=== PATIENT | female | born 1985 | race Caucasian/White ===

== ENCOUNTER → 2024-02-22 08:13 | Outpatient (REF) | payer BC, SELFPAY | LOC: PNTC 08:13 | PROVIDERS: ATTENDING PHYSICIAN Obstetrics & Gynecology | DX: O36.80X0 Pregnancy with inconclusive fetal viability, not applicable or unspecified (principal) | CPT/HCPCS: 76801; 76817 ==

== ENCOUNTER → 2024-09-13 10:43 | Outpatient (REF) | payer BC, SELFPAY | LOC: PNTC 10:43 | PROVIDERS: ATTENDING PHYSICIAN Obstetrics & Gynecology | DX: Z36.0 Encounter for antenatal screening for chromosomal anomalies (principal); Z36.82 Encounter for antenatal screening for nuchal translucency; O36.80X0 Pregnancy with inconclusive fetal viability, not applicable or unspecified | CPT/HCPCS: 76801; 76813 ==

== ENCOUNTER → 2024-10-20 09:46 | Outpatient (REF) | payer BC, SELFPAY | LOC: PNTC 09:46 | PROVIDERS: ATTENDING PHYSICIAN Obstetrics & Gynecology | DX: O09.529 Supervision of elderly multigravida, unspecified trimester (principal); O99.210 Obesity complicating pregnancy, unspecified trimester; O34.219 Maternal care for unspecified type scar from previous cesarean delivery | CPT/HCPCS: 76805 ==

== ENCOUNTER → 2024-11-14 08:46 | Outpatient (REF) | payer BC, SELFPAY | LOC: PNTC 08:46 | PROVIDERS: ATTENDING PHYSICIAN Obstetrics & Gynecology | DX: O09.529 Supervision of elderly multigravida, unspecified trimester (principal); O34.219 Maternal care for unspecified type scar from previous cesarean delivery; O99.210 Obesity complicating pregnancy, unspecified trimester | CPT/HCPCS: 76811 ==

== ENCOUNTER → 2024-12-26 08:50 | Outpatient (REF) | payer BC, SELFPAY | LOC: PNTC 08:50 | PROVIDERS: ATTENDING PHYSICIAN Obstetrics & Gynecology | DX: O09.529 Supervision of elderly multigravida, unspecified trimester (principal); O99.210 Obesity complicating pregnancy, unspecified trimester; O34.219 Maternal care for unspecified type scar from previous cesarean delivery | CPT/HCPCS: 76816 ==

== ENCOUNTER → 2025-01-18 08:38 | Outpatient (REF) | payer BC, SELFPAY ==
--- NOTE | 2025-01-18 08:07 | PN.DIAED06 ---
Meal Plan - Gestational
- Breakfast
Gestational Diabetes Meal Plan Name: 2000 calories
Breakfast - Total Carbohydrate (grams): 45
Breakfast - Starch Carbohydrate: 2
Breakfast - Fruit Carbohydrate: 0
Breakfast - Milk Carbohydrate: 1
Breakfast - Nonstarchy Vegetables: Yes
Breakfast - Meat/Protein: 1
Breakfast - Fat: 2
- Morning Snack
Morning Snack - Total Carbohydrate (grams): 30
Morning Snack - Starch Carbohydrate: 1
Morning Snack - Fruit Carbohydrate: 0
Morning Snack - Milk Carbohydrate: 1
Morning Snack - Nonstarchy Vegetables: Yes
Morning Snack - Meat/Protein: 0
Morning Snack - Fat: 0
- Lunch
Lunch - Total Carbohydrate (grams): 45
Lunch - Starch Carbohydrate: 1
Lunch - Fruit Carbohydrate: 1
Lunch - Milk Carbohydrate: 1
Lunch - Nonstarchy Vegetables: Yes
Lunch - Meat/Protein: 2
Lunch - Fat: 2
- Afternoon Snack
Afternoon Snack - Total Carbohydrate (grams): 30
Afternoon Snack - Starch Carbohydrate: 1
Afternoon Snack - Fruit Carbohydrate: 1
Afternoon Snack - Milk Carbohydrate: 0
Afternoon Snack - Nonstarchy Vegetables: Yes
Afternoon Snack - Meat/Protein: 1
Afternoon Snack - Fat: 0
- Dinner
Dinner - Total Carbohydrate (grams): 45
Dinner - Starch Carbohydrate: 2
Dinner - Fruit Carbohydrate: 1
Dinner - Milk Carbohydrate: 0
Dinner - Nonstarchy Vegetables: Yes
Dinner - Meat/Protein: 2
Dinner - Fat: 2
- Evening Snack
Evening Snack - Total Carbohydrate (grams): 45
Evening Snack - Starch Carbohydrate: 1
Evening Snack - Fruit Carbohydrate: 1
Evening Snack - Milk Carbohydrate: 1
Evening Snack - Nonstarchy Vegetables: Yes
Evening Snack - Meat/Protein: 1
Evening Snack - Fat: 0
--- NOTE | 2025-01-18 11:14 | PN.DE ---
Diabetes Education
- -
01/18/2025: Gestational Diabetes Consult
Met with Ms Laguerre today, , currently at 29 weeks of gestation, here today for medical nutrition therapy.
Explained glucose metabolism in body and what occurs during to cause increase blood sugar. Discussed importance of keeping BS well controlled to avoid complications to the baby during and after (macrosomia, hypoglycemia).
Explained to [facility] she is at increased risk of developing T2DM in the future.
Provided instructions on proper testing technique, testing sites and testing pattern. She is aware to test FBS and 2 hr pp each meal. Expected results for FBS <90 mg/dl and 2 hr pp <120 mg/dl. Noted for fasting blood sugar of 96mg/dl this morning.
Log sheet provided for her to record results, she will send a 4-day meal log with all her FBG and 2hr Post prandial glucose numbers to this office for review. In addition, she will send all her glucose readings to Sulema at [facility]
group every Thursday.
Discussed macronutrients, provided with 2000 carlos GDM meal plan, she has a good understanding of healthy nutrition and states she been eating healthy most of her life. Discussed physical activity, however, she is currently not participating in any
formal exercise due to having 2 young kids at home but reports that she will start to include structured exercise in her daily routine. She was encouraged to reach out should she require insulin.
== END ==
LOC: DES 08:38
PROVIDERS: ATTENDING PHYSICIAN Student in an Organized Health Care Education/Training Program
DX: O24.419 Gestational diabetes mellitus in pregnancy, unspecified control (principal)
CPT/HCPCS: 99078

== ENCOUNTER → 2025-01-23 11:22 | Outpatient (REF) | payer BC, SELFPAY | LOC: PNTC 11:22 | PROVIDERS: ATTENDING PHYSICIAN Student in an Organized Health Care Education/Training Program | DX: O24.419 Gestational diabetes mellitus in pregnancy, unspecified control (principal); O09.519 Supervision of elderly primigravida, unspecified trimester | CPT/HCPCS: 76816 ==

== ENCOUNTER → 2025-02-21 08:59 | Outpatient (REF) | payer BC, SELFPAY | LOC: PNTC 08:59 | PROVIDERS: ATTENDING PHYSICIAN Obstetrics & Gynecology | DX: O99.210 Obesity complicating pregnancy, unspecified trimester (principal); O09.529 Supervision of elderly multigravida, unspecified trimester; O34.219 Maternal care for unspecified type scar from previous cesarean delivery | CPT/HCPCS: 59025; 76816 ==

== ENCOUNTER → 2025-02-28 08:59 | Outpatient (REF) | payer BC, SELFPAY | LOC: PNTC 08:59 | PROVIDERS: ATTENDING PHYSICIAN Obstetrics & Gynecology | DX: O99.210 Obesity complicating pregnancy, unspecified trimester (principal); O34.211 Maternal care for low transverse scar from previous cesarean delivery; O09.529 Supervision of elderly multigravida, unspecified trimester | CPT/HCPCS: 59025; 76815 ==

== ENCOUNTER → 2025-03-01 09:33 | Outpatient (REF) | payer BC, SELFPAY | LOC: PNTC 09:33 | PROVIDERS: ATTENDING PHYSICIAN Student in an Organized Health Care Education/Training Program | DX: O36.8310 Maternal care for abnormalities of the fetal heart rate or rhythm, first trimester, not applicable or unspecified (principal) | CPT/HCPCS: 59025 ==

== ENCOUNTER → 2025-03-07 10:53 | Outpatient (REF) | payer BC, SELFPAY | LOC: PNTC 10:53 | PROVIDERS: ATTENDING PHYSICIAN Obstetrics & Gynecology | DX: O09.529 Supervision of elderly multigravida, unspecified trimester (principal); O34.211 Maternal care for low transverse scar from previous cesarean delivery; O99.210 Obesity complicating pregnancy, unspecified trimester | CPT/HCPCS: 59025; 76815 ==

== ENCOUNTER → 2025-03-14 08:51 | Outpatient (REF) | payer BC, SELFPAY | LOC: PNTC 08:51 | PROVIDERS: ATTENDING PHYSICIAN Obstetrics & Gynecology | DX: O09.529 Supervision of elderly multigravida, unspecified trimester (principal); O34.211 Maternal care for low transverse scar from previous cesarean delivery; O99.210 Obesity complicating pregnancy, unspecified trimester | CPT/HCPCS: 59025; 76815 ==

== ENCOUNTER → 2025-03-21 08:58 | Outpatient (REF) | payer BC, SELFPAY | LOC: PNTC 08:58 | PROVIDERS: ATTENDING PHYSICIAN Obstetrics & Gynecology | DX: O09.529 Supervision of elderly multigravida, unspecified trimester (principal); O34.219 Maternal care for unspecified type scar from previous cesarean delivery; O99.210 Obesity complicating pregnancy, unspecified trimester | CPT/HCPCS: 59025; 76816 ==

== ENCOUNTER 2025-03-28 06:34 | Inpatient (IN) | payer BC, SELFPAY ==
[2025-03-28 06:38] VITALS: BMI 37.4
[2025-03-28 06:51] VITALS: BP 152/106
[2025-03-28] MEDS: ANCEF 10 IV (07:47)
[2025-03-28] MEDS: BICITRA 30 ML PO (07:47)
[2025-03-28] MEDS: TYLENOL 1000 MG PO (07:47)
[2025-03-28] MEDS: LR 1000 IV (07:48)
[2025-03-28 07:53] LABS: Hematocrit 38.4 % (37.0-47.0); Hemoglobin 13.1 g/dL (12.0-16.0); Mean Corp Hgb Conc. 34.1 g/dL (33.0-37.0); Mean Corpuscular Hgb 30.4 pg (27.0-31.0); Mean Corpuscular Volume 89.1 fL (81.0-99.0); Mean Platelet Volume 12.7 fL (7.4-10.4); Platelet Count 134 10^3/uL (130-400); Red Blood Cell Count 4.31 10^6/uL (4.20-5.40); Red Cell Dist. Width 13.4 % (11.5-14.5)
[2025-03-28 08:15] LABS: Protein/creatinine Ratio 0.3; Urine Protein 12 mg/dl
[2025-03-28 08:42] LABS: ALT (SGPT) 16 U/L (0-35); AST (SGOT) 17 U/L (14-36); Albumin 3.2 g/dl (3.5-5.0); Alkaline Phosphatase 131 U/L (38-126); Blood Urea Nitrogen 15 mg/dl (7-17); Calcium 9.2 mg/dl (8.4-10.2); Carbon Dioxide 21 mmol/L (22-30); Chloride 108 mmol/L (98-107); Estimated Creatinine Clearance > 125 ml/min; Glucose 92 mg/dl (70-99); Potassium 4.1 mmol/L (3.5-5.1); Sodium 137 mmol/L (135-145); Total Bilirubin 0.4 mg/dl (0.2-1.3); Total Protein 5.8 g/dl (6.3-8.2); eGFR > 60.00
[2025-03-28] MEDS: TORADOL 15 MG IV ×3 (11:46→23:52)
[2025-03-28] MEDS: TYLENOL 650 MG PO ×2 (15:59→22:28)
[2025-03-28] MEDS: NON-FORMULARY ITEM 1 UNIT PO (17:38)
[2025-03-29] MEDS: TYLENOL 650 MG PO (04:23)
[2025-03-29 05:07] LABS: Hematocrit 30.7 % (37.0-47.0); Hemoglobin 10.3 g/dL (12.0-16.0); Mean Corp Hgb Conc. 33.6 g/dL (33.0-37.0); Mean Corpuscular Hgb 30.4 pg (27.0-31.0); Mean Corpuscular Volume 90.6 fL (81.0-99.0); Mean Platelet Volume 12.9 fL (7.4-10.4); Platelet Count 122 10^3/uL (130-400); Red Blood Cell Count 3.39 10^6/uL (4.20-5.40); Red Cell Dist. Width 13.6 % (11.5-14.5); White Blood Cell Count 12.9 10^3/uL (4.8-10.8)
[2025-03-29] MEDS: TORADOL 15 MG IV ×2 (06:05→12:09)
[2025-03-29] MEDS: FLUSH (NSS) 3 FLUSH IV (06:06)
[2025-03-29] MEDS: NON-FORMULARY ITEM 1 UNIT PO (06:08)
[2025-03-29] MEDS: MYLICON 80 MG PO ×2 (06:19→12:09)
--- NOTE | 2025-03-29 07:54 | W.PN.ANS.POP ---
Anesthesia Post Operative
- Anesthesia Post Op Note
Vital Signs Stable-See Nursing Note: Yes
Airway Patent: Yes
Adequate Pain Control: Yes
Change in Mental Status: No
Current Postoperative Nausea & Vomiting: No
Anesthesia Complications: No
General Anesthetic Recall: No
Unplanned Admission: No
Post Op Hydration Adequate: Yes
[2025-03-29] MEDS: PRENATAL PLUS 1 TABLET PO (08:50)
[2025-03-29] MEDS: SENOKOT-S 1 TABLET PO (08:50)
[2025-03-29] MEDS: MOTRIN 600 MG PO (17:30)
[2025-03-29] MEDS: PERCOCET 5/325 1 TABLET PO (21:12)
[2025-03-30] MEDS: MOTRIN 600 MG PO ×4 (00:01→18:19)
[2025-03-30] MEDS: TYLENOL 650 MG PO (03:51)
[2025-03-30] MEDS: NON-FORMULARY ITEM 1 UNIT PO (06:06)
[2025-03-30] MEDS: PERCOCET 5/325 1 TABLET PO ×3 (08:27→20:34)
[2025-03-30] MEDS: FEOSOL 325 MG PO (08:27)
[2025-03-30] MEDS: PRENATAL PLUS 1 TABLET PO (08:27)
[2025-03-30] MEDS: SENOKOT-S 1 TABLET PO (08:27)
[2025-03-31] MEDS: MOTRIN 600 MG PO ×3 (00:06→12:03)
[2025-03-31] MEDS: NON-FORMULARY ITEM 1 UNIT PO (05:56)
--- NOTE | 2025-03-31 08:31 | W.DS.TRANS ---
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
-
Discharge Instructions:
Discharge Diagnosis/Procedures Section
Diet No restrictions
Instructions:
Stand-Alone Forms: LDRP Delivery
Changes to Home Medications: No
Discharge Medications:
DC Medications w/original date entered in [employer]
prenat.vits,carlos,wia-bowr-ssbiz ( Vitamin tablet) 1 tab PO DAILY Supplement 06/01/18
Synthroid 25 mcg PO DAILY 03/28/25
acetaminophen 325 mg tablet 650 mg (2 x 325 mg) PO Q4HPRN PRN mild pain #0 tabs 03/31/25
ferrous sulfate 325 mg (65 mg iron) tablet (FeroSul) 325 mg PO DAILY #0 tabs 03/31/25
ibuprofen 600 mg tablet 600 mg PO Q6HPRN PRN cramps #45 tabs 03/31/25
oxycodone-acetaminophen 5 mg-325 mg tablet 1 tab PO Q4HPRN PRN moderate pain #10 tabs 03/31/25
sennosides 8.6 mg-docusate sodium 50 mg tablet 1 tab PO DAILYPRN PRN constipation #0 tabs 03/31/25
Home Medication Changes
Pending Results: No
[2025-03-31] MEDS: PERCOCET 5/325 1 TABLET PO (10:51)
[2025-03-31 11:39] LABS: Syphilis/T. pallidum Ab Reflex Negative (Negative)
[2025-03-31] MEDS: FEOSOL 325 MG PO (12:03)
[2025-03-31] MEDS: SENOKOT-S 1 TABLET PO (12:04)
[2025-03-31] MEDS: PRENATAL PLUS 1 TABLET PO (12:04)
== END 2025-03-31 15:07 | disposition home or self-care (01) | DRG 788 ==
LOC: LDRP 06:34
PROVIDERS: ADMITTING PHYSICIAN Obstetrics & Gynecology; FAMILY PHYSICIAN Family Medicine
PROC: 10D00Z1 Extraction of Products of Conception, Low, Open Approach (ICD-10-PCS; 2025-03-28)
DX: O34.211 Maternal care for low transverse scar from previous cesarean delivery (principal); Z37.0 Single live birth; O24.420 Gestational diabetes mellitus in childbirth, diet controlled; O99.284 Endocrine, nutritional and metabolic diseases complicating childbirth; Z3A.39 39 weeks gestation of pregnancy; O99.214 Obesity complicating childbirth
CPT/HCPCS: 88307; 36415; 80053; 82570; 84156; 85027; 86780; 86850; 86900; 86901